=== PATIENT | female | born 1980 | race Caucasian/White ===

== ENCOUNTER 2022-06-11 17:23 | Emergency (ER) | payer BC ==
--- OUTSIDE RECORDS SUMMARY | 2022-06-11 17:34 | XMS REPORT | Continuity of Care Document ---
:1980 Author Organization [facility] t Address [address] [place] [address] [place] [id number] Care Team Providers Name Role Phone PCP, PATIENT DOES NOT HAVE A Primary Care Physician Unavailpaul Aly RN, Swetha Khalil Attending Clinician Unavailable UNKNOWN, ATTENDING Attending Clinician Unavailable Lab, Adc Fam Pob I Attending Clinician Unavailable Alex Mireles MD Attending Clinician ALEX MIRELES Attending Clinician Unavailable Doctor Unassigned, [place] Attending Clinician Unavailable KAT BHATTI Attending Clinician Unavailable MD TOMASA GARCIAS Attending Clinician Unavailable ANNALISA SCHULTZ Attending Clinician Unavailable MD ANNALISA SCHULTZ Attending Clinician Unavailable GELACIO MYERS Attending Clinician Unavailable ELI SOTO Attending Clinician Unavailable VARUN HOLMAN Attending Clinician Unavailable CLAIRE BONE Attending Clinician Unavailable Oscar Mccarthy Attending Clinician Fatoumata Goss DO Attending Clinician FATOUMATA GOSS Attending Clinician Unavailable Sherrell Christine Admitting Clinician Unavailable TOMASA GARCIAS Admitting Clinician Unavailable MD TOMASA GARCIAS Admitting Clinician Unavailable ANNALISA SCHULTZ Admitting Clinician Unavailable MD ANNALISA SCHULTZ Admitting Clinician Unavailable Oscar Mccarthy Admitting Clinician FATOUMATA GOSS Admitting Clinician Unavailable CLAIRE BONE Admitting Clinician Unavailable Payers Payer Name Policy Type Policy Number Effective Date Expiration Date S oursergio Problems Condition Condition Condition Status Onset Resolution Last Treating Co mments Source Name Details Category Date Date Treatment Clinician Date Acute Acute Disease Active Methodi gastritis gastritis 09-06 st without without 00:00: Hospita hemorrhage hemorrhage 00 l Sprain of Sprain of Problem Active 2019-10-05 Memoria ankle ankle 08-16 04:01:20 l grade III grade III 00:00: Herm ga (disorder) (disorder) 00 Active 08/17/2019 Problem 10/05/2019 [facility] 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 Added automatic ally from request for surgery [id number] Colitis Colitis Disease Active [facility] 06-22 st 00:00: Hospita 00 l Abdominal Abdominal Disease Active Met hodi pain pain 06-21 st 00:00: Hospita 00 l Enterocoli Enterocoli Disease Active M ethodi tis tis 06-16 st 00:00: Hospita 00 l Cervical Cervical Disease Active Overview: Me thodi radiculopa radiculopa 6-[address] thy thy 00:00: g of this Hospita 00 note l might be different from the original. Added automatic ally from request for surgery [id number] Cervical Cervical Disease Active Overview: Me thodi herniated herniated -12 Formattin s t disc disc 00:00: g of this Hospita 00 note l might be different from the original. 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 nasal hy of 04:01:20 l turbinates nasal Fuad n (disorder) turbinates (disorder) Active Problem 10/05/2019 [facility] Acute Acute Problem 2019-09-16 Memor ia frontal frontal 04:01:52 l sinusitis, sinusitis, [place] unspecifie unspecifie d d 09/16/2019 [facility] No known No known Disease Unive rs active active ity of problems problems [facility] Pneumonia Pneumonia Problem Resolve 2019-10-05 2019-10-05 Memoria (disorder) (disorder) d 02-16 04:01:20 04:01:20 l Resolved 00:00: Gui 02/16/2010 00 Problem 10/05/2019 [facility] Allergies, Adverse Reactions, Alerts Allergy Allergy Status Severity Reaction(s) Onset Inactive Treating Comm ents Source Name Type Date Date Clinician midazola DA Active SV 2019- [facility] m 2-08 [place] 00:[facility]: d [facility] cefazoli DA Active SV 2019- [facility] n 2-08 [place] 00:00: d 00 [facility] midazola DA Active SV HIVES, SOB 2019- [facility] m 2-08 [place] 00:00: d 00 [facility] Center cefazoli DA Active SV HIVES, SOB 2019- [facility] n 2-08 [place] 00:00: d 00 [facility] Center Cefazoli Propensi Active Shortness Of 2017-0 Methodi n ty to Breath -09 st adverse 00:00: Hospita reaction 00 l s to drug Midazola Propensi Active Shortness Of 2017-0 Methodi m ty to Breath 1-09 st adverse 00:00: Hospita reaction 00 l s to drug Cefazoli Propensi Active Hives Univer s n Sodium ty to 08-07 ity of adverse 00:00: [place] reaction 00 [facility] CEFAZOLI DRUG Active Anaphylaxis Uni vers N SODIUM INGREDI 08-07 ity of 00:00: [place] 00 [facility] MIDAZOLA DRUG Active Anaphylaxis Uni vers M HCL INGREDI 08-07 ity of 00:00: [address] Midazola Propensi Active Hives Univer s m Hcl ty to 08-07 ity of adverse 00:00: [place] reaction [address] [place] [address] Tape Tape Active Memoria desi Messer Versed Versed Active Anaphylaxis Memor ia (disorder) desi Messer Ancef Ancef Active Anaphylaxis Memor ia (disorder) desi Messer Family History Family Member Diagnosis Comments Start Date Stop Date Source Natural father Hypertension [facility] Natural mother Hypertension [facility] Social History Social Habit Start Date Stop Date Quantity Comments Source Exposure to Yes [facility] SARS-CoV-2 (event) [facility] Gender identity [facility] Sexual orientation [facility] History of Social 2022-05-21 2022-05-[address] function 00:00:00 00:00:00 Hospital Alcohol intake 2020-10-08 2020-10-08 Current drinker [facility] dist 00:00:00 00:00:00 of alcohol Hospital (finding) Cigarette 2019-01-18 2019-01-18 [facility] pack-[facility] 00:00:00 00:00:00 Hospital Tobacco use and 2019-01-18 2019-01-18 Smokeless [facility] exposure 00:00:00 00:00:00 tobacco non-user Hospital Cigarettes smoked 2019-01-18 2019-01-[address] current (pack per 00:00:00 00:00:00 Hospita l day) - Reported Alcohol Comment 2017-08-03 2017-08-03 couple times per Met hodist 00:00:00 00:00:00 month Hospital History of tobacco 2007-08-06 Current smoker [facility] use 00:00:00 [facility] Sex Assigned At [birth year] [facility] 00:00:00 00:00:00 Hospital Smoking Status Start Date Stop Date Source Ex-smoker 2019-01-18 00:00:00 2019-01-18 00:00:00 [facility] Social History [facility] Medications Ordered Filled Start Stop Current Ordering Indication Dosage Frequency Signature Comments Components Source Medication Medication Date Date Medication? Clinician (SIG) Name Name etonogestre Yes 1{dose} Q28D Insert 1 Methodi l/ethinyl 8-[address] estradiol 16:28: the vagina Ho spita (NUVARING 19 every 28 l VAGL) days. pantoprazol Yes 40mg QD Take 40 mg Methodi e 8-[address] (PROTONIX) 16:28: daily. Hospi ta 40 MG EC 19 l tablet montelukast Yes 10mg QD Take 10 mg Methodi (SINGULAIR) 8-[address] 10 mg 16:28: daily. Hospita tablet 19 l cetirizine Yes 1{tbl} QD Take 1 Met hodi HCl/pseudoe 8-[address] phedrine 16:28: mouth Hospita (ZYRTEC-D 19 daily. l ORAL) hyoscyamine Yes .125mg [id number] Take 0.125 Methodi (LEVSIN) 8-[id number] 0.125 mg SL 16:28: 3D mouth 3 Hos christine tablet 19 (three) l times a day as needed. Tylenol No Notes: Max Marcus tenisha 8-17 4gm l 18:01: acetaminop Gui 00 hen in 24 hours Tylenol No Notes: Max Marcus tenisha 8-17 4gm l 18:01: acetaminop Gui 00 hen in 24 hours Tylenol No Notes: Max Marcus tenisha 8-17 4gm l 18:01: acetaminop [place] 00 hen in 24 hours Tylenol No Notes: Max Marcus tenisha 8-17 4gm l 18:01: acetaminop [place] 00 hen in 24 hours Ofirmev No Notes: Max Marcus tenisha 8-17 4gm l 18:00: acetaminop [place] 00 hen in 24 hours Ofirmev No Notes: Max Marcus tenisha 8-17 4gm l 18:00: acetaminop Gui 00 hen in 24 hours Ofirmev No Notes: Max Marcus tenisha 8-17 4gm l 18:00: acetaminop Gui 00 hen in 24 hours Ofirmev No Notes: Max Marcus tenisha 8-17 4gm l 18:00: acetaminop Gui 00 hen in 24 hours Promethazin No 12.5 mg = M emoria e 8-17 0.5 mL, l 17:16: Injection, Gui 00 IM, Once PRN for vomiting, first dose 10/03/19 12:16:00 CDT Labetalol 2020-0 No 5 mg = 1 Marcus tenisha 8-17 mL, l 17:16: Injection, IV Push, As Indicated PRN for hypertensi on, first dose 10/03/19 12:16:00 CDT, SBP Hold Parameter: less than 110 mmHg, HR Hold Parameter: less than 60 bpm Diphenhydra 2020-0 No 25 mg = Mem oria mine 8-17 0.5 mL, l 17:16: Injection, IV Push, Once PRN for itching, first dose 10/03/19 12:16:00 CDT Misc 2020-0 No 500 mL, Memoria Medication 8-17 Soln-IV, l 17:16: IV, Once, first dose 10/03/19 12:16:00 CDT, stop date 10/03/19 12:16:00 CDT LR 1,000 mL 2020-0 No 1,000 mL, M emoria 8-17 IV, 75 l 17:16: mL/hr, start date 10/03/19 12:16:00 CDT, 1.43, m2 Saline Lock 2020-0 No 10 mL, Marcus tenisha Flush 8-17 Soln, IV l 17:16: Push, As Indicated PRN for flush, first dose 10/03/19 12:16:00 CDT Robinul 2020-0 No 0.2 mg = 1 Marcus tenisha 8-17 mL, l 17:16: Injection, IV Push, Once PRN for bradycardi a, first dose 10/03/19 12:16:00 CDT Dilaudid 2020-0 No 0.5 mg = Memor ia 8-17 0.5 mL, l 17:16: Injection, IV Push, q10min PRN for pain severe (7-10), first dose 10/03/19 12:16:00 CDT Demerol HCl 2020-0 No 12.5 mg = M emoria 8-17 0.5 mL, l 17:16: Injection, IV Push, Once PRN for shivers, first dose 10/03/19 12:16:00 CDT Albuterol 2020-0 No 2.5 mg = 3 Me moria 0.83 MG/ML 8-17 mL, Soln, l Inhalant 17:16: NEB, Once Herm ga Solution 00 PRN for wheezing, first dose 10/03/19 12:16:00 CDT Levalbutero 2020-0 No 0.63 mg = M emoria l 0.21 8-17 3 mL, l MG/ML 17:16: Soln, NEB, Fuad n Inhalant 00 Once PRN Solution for [Xopenex] wheezing, first dose 10/03/19 12:16:00 CDT Ondansetron 2020-0 No 4 mg = 2 Me moria 8-17 mL, l 17:16: Injection, [place] IV Push, q15min PRN for nausea, order duration: 2 doses, first dose 10/03/19 12:16:00 CDT, stop date Limited # of times Promethazin 2020-0 No 12.5 mg = M emoria e 8-17 0.5 mL, l 17:16: Injection, Gui 00 IM, Once PRN for vomiting, first dose 10/03/19 12:16:00 CDT Labetalol 2020-0 No 5 mg = 1 Marcus tenisha 8-17 mL, l 17:16: Injection, [place] IV Push, As Indicated PRN for hypertensi on, first dose 10/03/19 12:16:00 CDT, SBP Hold Parameter: less than 110 mmHg, HR Hold Parameter: less than 60 bpm LR 1,000 mL 2020-0 No 1,000 mL, M emoria 8-17 IV, 75 l 17:16: mL/hr, Gui 00 start date 10/03/19 12:16:00 CDT, 1.43, m2 Saline Lock 2020-0 No 10 mL, Marcus tenisha Flush 8-17 Soln, IV l 17:16: Push, As [place] Indicated PRN for flush, first dose 10/03/19 12:16:00 CDT Robinul 2020-0 No 0.2 mg = 1 Marcus tenisha 8-17 mL, l 17:16: Injection, [place] IV Push, Once PRN for bradycardi a, first dose 10/03/19 12:16:00 CDT Dilaudid 2020-0 No 0.5 mg = Memor ia 8-17 0.5 mL, l 17:16: Injection, Gui 00 IV Push, q10min PRN for pain severe (7-10), first dose 10/03/19 12:16:00 CDT Demerol HCl 2020-0 No 12.5 mg = M emoria 8-17 0.5 mL, l 17:16: Injection, [place] 00 IV Push, Once PRN for shivers, first dose 10/03/19 12:16:00 CDT Albuterol 2020-0 No 2.5 mg = 3 Me moria 0.83 MG/ML 8-17 mL, Soln, l Inhalant 17:16: NEB, Once Herm ga Solution 00 PRN for wheezing, first dose 10/03/19 12:16:00 CDT Levalbutero 2020-0 No 0.63 mg = M emoria l 0.21 8-17 3 mL, l MG/ML 17:16: Soln, NEB, Fuad n Inhalant 00 Once PRN Solution for [Xopenex] wheezing, first dose 10/03/19 12:16:00 CDT Ondansetron 2020-0 No 4 mg = 2 Me moria 8-17 mL, l 17:16: Injection, Gui 00 IV Push, q15min PRN for nausea, order duration: 2 doses, first dose 10/03/19 12:16:00 CDT, stop date Limited # of times Promethazin 2020-0 No 12.5 mg = M emoria e 8-17 0.5 mL, l 17:16: Injection, Gui 00 IM, Once PRN for vomiting, first dose 10/03/19 12:16:00 CDT Labetalol 2020-0 No 5 mg = 1 Marcus tenisha 8-17 mL, l 17:16: Injection, [place] 00 IV Push, As Indicated PRN for hypertensi on, first dose 10/03/19 12:16:00 CDT, SBP Hold Parameter: less than 110 mmHg, HR Hold Parameter: less than 60 bpm Diphenhydra 2020-0 No 25 mg = Mem oria mine 8-17 0.5 mL, l 17:16: Injection, Gui 00 IV Push, Once PRN for itching, first dose 10/03/19 12:16:00 CDT Diphenhydra 2020-0 No 25 mg = Mem oria mine 8-17 0.5 mL, l 17:16: Injection, IV Push, Once PRN for itching, first dose 10/03/19 12:16:00 CDT Misc 2020-0 No 500 mL, Memoria Medication 8-17 Soln-IV, l 17:16: IV, Once, first dose 10/03/19 12:16:00 CDT, stop date 10/03/19 12:16:00 CDT Misc 2020-0 No 500 mL, Memoria Medication 8-17 Soln-IV, l 17:16: IV, Once, first dose 10/03/19 12:16:00 CDT, stop date 10/03/19 12:16:00 CDT LR 1,000 mL 2020-0 No 1,000 mL, M emoria 8-17 IV, 75 l 17:16: mL/hr, start date 10/03/19 12:16:00 CDT, 1.43, m2 Saline Lock 2020-0 No 10 mL, Marcus tenisha Flush 8-17 Soln, IV l 17:16: Push, As Indicated PRN for flush, first dose 10/03/19 12:16:00 CDT Robinul 2020-0 No 0.2 mg = 1 Marcus tenisha 8-17 mL, l 17:16: Injection, IV Push, Once PRN for bradycardi a, first dose 10/03/19 12:16:00 CDT Dilaudid 2020-0 No 0.5 mg = Memor ia 8-17 0.5 mL, l 17:16: Injection, IV Push, q10min PRN for pain severe (7-10), first dose 10/03/19 12:16:00 CDT Demerol HCl 2020-0 No 12.5 mg = M emoria 8-17 0.5 mL, l 17:16: Injection, IV Push, Once PRN for shivers, first dose 10/03/19 12:16:00 CDT Albuterol 2020-0 No 2.5 mg = 3 Me moria 0.83 MG/ML 8-17 mL, Soln, l Inhalant 17:16: NEB, Once Herm ga Solution 00 PRN for wheezing, first dose 10/03/19 12:16:00 CDT Levalbutero 2020-0 No 0.63 mg = M emoria l 0.21 8-17 3 mL, l MG/ML 17:16: Soln, NEB, Fuad n Inhalant 00 Once PRN Solution for [Xopenex] wheezing, first dose 10/03/19 12:16:00 CDT Ondansetron 2020-0 No 4 mg = 2 Me moria 8-17 mL, l 17:16: Injection, [place] IV Push, q15min PRN for nausea, order duration: 2 doses, first dose 10/03/19 12:16:00 CDT, stop date Limited # of times Promethazin 2020-0 No 12.5 mg = [place] emoria e 8-17 0.5 mL, l 17:16: Injection, Gui 00 IM, Once PRN for vomiting, first dose 10/03/19 12:16:00 CDT Labetalol 2020-0 No 5 mg = 1 Marcus tenisha 8-17 mL, l 17:16: Injection, Gui IV Push, As Indicated PRN for hypertensi on, first dose 10/03/19 12:16:00 CDT, SBP Hold Parameter: less than 110 mmHg, HR Hold Parameter: less than 60 bpm Diphenhydra 2020-0 No 25 mg = Mem oria mine 8-17 0.5 mL, l 17:16: Injection, Gui 00 IV Push, Once PRN for itching, first dose 10/03/19 12:16:00 CDT Misc 2020-0 No 500 mL, Memoria Medication 8-17 Soln-IV, l 17:16: IV, Once, Gui first dose 10/03/19 12:16:00 CDT, stop date 10/03/19 12:16:00 CDT LR 1,000 mL 2020-0 No 1,000 mL, M emoria 8-17 IV, 75 l 17:16: mL/hr, Gui start date 10/03/19 12:16:00 CDT, 1.43, m2 Sal[place] 2020-0 No 10 mL, Marcus tenisha Flush 8-17 Soln, IV l 17:16: Push, As Gui 00 Indicated PRN for flush, first dose 10/03/19 12:16:00 CDT Robinul 2020-0 No 0.2 mg = 1 Marcus tenisha 8-17 mL, l 17:16: Injection, Gui 00 IV Push, Once PRN for bradycardi a, first dose 10/03/19 12:16:00 CDT Dilaudid 2020-0 No 0.5 mg = Memor ia 8-17 0.5 mL, l 17:16: Injection, Gui 00 IV Push, q10min PRN for pain severe (7-10), first dose 10/03/19 12:16:00 CDT Demerol HCl 2020-0 No 12.5 mg = M emoria 8-17 0.5 mL, l 17:16: Injection, Gui 00 IV Push, Once PRN for shivers, first dose 10/03/19 12:16:00 CDT Albuterol 2020-0 No 2.5 mg = 3 Me moria 0.83 MG/ML 8-17 mL, Soln, l Inhalant 17:16: NEB, Once Herm ga Solution 00 PRN for wheezing, first dose 10/03/19 12:16:00 CDT Levalbutero 2020-0 No 0.63 mg = M emoria l 0.21 8-17 3 mL, l MG/ML 17:16: Soln, NEB, Fuad n Inhalant 00 Once PRN Solution for [Xopenex] wheezing, first dose 10/03/19 12:16:00 CDT Ondansetron 2020-0 No 4 mg = 2 Me moria 8-17 mL, l 17:16: Injection, [place] 00 IV Push, q15min PRN for nausea, order duration: 2 doses, first dose 10/03/19 12:16:00 CDT, stop date Limited # of times sugammadex 2020-0 No 100 mg = 1 M emoria 8-17 mL, l 16:53: Injection, [place] 00 IV, Once, first dose 10/03/19 11:53:00 CDT, stop date 10/03/19 11:53:00 CDT sugammadex 2020-0 No 100 mg = 1 M emoria 8-17 mL, l 16:53: Injection, Gui 00 IV, Once, first dose 10/03/19 11:53:00 CDT, stop date 10/03/19 11:53:00 CDT sugammadex 2020-0 No 100 mg = 1 M aliyaria 8-17 mL, l 16:53: Injection, Gui 00 IV, Once, first dose 10/03/19 11:53:00 CDT, stop date 10/03/19 11:53:00 CDT sugammadex 2020-0 No 100 mg = 1 M aliyaria 8-17 mL, l 16:53: Injection, Gui 00 IV, Once, first dose 10/03/19 11:53:00 CDT, stop date 10/03/19 11:53:00 CDT fentaNYL 2020-0 No 25 mcg = Memor ia 8-17 0.5 mL, l 16:34: Injection, [place] 00 IV, Once, first dose 10/03/19 11:34:00 CDT, stop date 10/03/19 11:34:00 CDT fentaNYL 2020-0 No 25 mcg = Memor ia 8-17 0.5 mL, l 16:34: Injection, Gui 00 IV, Once, first dose 10/03/19 11:34:00 CDT, stop date 10/03/19 11:34:00 CDT fentaNYL 2020-0 No 25 mcg = Memor ia 8-17 0.5 mL, l 16:34: Injection, Gui 00 IV, Once, first dose 10/03/19 11:34:00 CDT, stop date 10/03/19 11:34:00 CDT fentaNYL 2020-0 No 25 mcg = Memor ia 8-17 0.5 mL, l 16:34: Injection, Gui 00 IV, Once, first dose 10/03/19 11:34:00 CDT, stop date 10/03/19 11:34:00 CDT fentaNYL 2020-0 No 25 mcg = Memor ia 8-17 0.5 mL, l 16:22: Injection, Gui 00 IV, Once, first dose 10/03/19 11:22:00 CDT, stop date 10/03/19 11:22:00 CDT fentaNYL 2020-0 No 25 mcg = Memor ia 8-17 0.5 mL, l 16:22: Injection, Gui 00 IV, Once, first dose 10/03/19 11:22:00 CDT, stop date 10/03/19 11:22:00 CDT fentaNYL 2020-0 No 25 mcg = Memor ia 8-17 0.5 mL, l 16:22: Injection, [place] 00 IV, Once, first dose 10/03/19 11:22:00 CDT, stop date 10/03/19 11:22:00 CDT fentaNYL 2020-0 No 25 mcg = Memor ia 8-17 0.5 mL, l 16:22: Injection, [place] 00 IV, Once, first dose 10/03/19 11:22:00 CDT, stop date 10/03/19 11:22:00 CDT ondansetron 2020-0 No 4 mg = 2 Me moria 8-17 mL, l 16:14: Injection, Gui 00 IV, Once, first dose 10/03/19 11:14:00 CDT, stop date 10/03/19 11:14:00 CDT ondansetron 2020-0 No 4 mg = 2 Me moria 8-17 mL, l 16:14: Injection, Gui 00 IV, Once, first dose 10/03/19 11:14:00 CDT, stop date 10/03/19 11:14:00 CDT ondansetron 2020-0 No 4 mg = 2 Me moria 8-17 mL, l 16:14: Injection, Gui 00 IV, Once, first dose 10/03/19 11:14:00 CDT, stop date 10/03/19 11:14:00 CDT ondansetron 2020-0 No 4 mg = 2 Me moria 8-17 mL, l 16:14: Injection, [place] 00 IV, Once, first dose 10/03/19 11:14:00 CDT, stop date 10/03/19 11:14:00 CDT fentaNYL 2020-0 No 25 mcg = Memor ia 8-17 0.5 mL, l 16:07: Injection, [place] 00 IV, Once, first dose 10/03/19 11:07:00 CDT, stop date 10/03/19 11:07:00 CDT fentaNYL 2020-0 No 25 mcg = Memor ia 8-17 0.5 mL, l 16:07: Injection, Gui 00 IV, Once, first dose 10/03/19 11:07:00 CDT, stop date 10/03/19 11:07:00 CDT fentaNYL 2020-0 No 25 mcg = Memor ia 8-17 0.5 mL, l 16:07: Injection, Gui 00 IV, Once, first dose 10/03/19 11:07:00 CDT, stop date 10/03/19 11:07:00 CDT fentaNYL 2020-0 No 25 mcg = Memor ia 8-17 0.5 mL, l 16:07: Injection, Gui 00 IV, Once, first dose 10/03/19 11:07:00 CDT, stop date 10/03/19 11:07:00 CDT fentaNYL 2020-0 No 25 mcg = Memor ia 8-17 0.5 mL, l 16:00: Injection, [place] 00 IV, Once, first dose 10/03/19 11:00:00 CDT, stop date 10/03/19 11:00:00 CDT fentaNYL 2020-0 No 25 mcg = Memor ia 8-17 0.5 mL, l 16:00: Injection, [place] 00 IV, Once, first dose 10/03/19 11:00:00 CDT, stop date 10/03/19 11:00:00 CDT fentaNYL 2020-0 No 25 mcg = Memor ia 8-17 0.5 mL, l 16:00: Injection, Gui 00 IV, Once, first dose 10/03/19 11:00:00 CDT, stop date 10/03/19 11:00:00 CDT fentaNYL 2020-0 No 25 mcg = Memor ia 8-17 0.5 mL, l 16:00: Injection, [place] 00 IV, Once, first dose 10/03/19 11:00:00 CDT, stop date 10/03/19 11:00:00 CDT Misc 2020-0 No 1,000 mL, Memoria Medication 8-17 Soln-IV, l 15:56: IV, Once, Gui 00 first dose 10/03/19 10:56:00 CDT, stop date 10/03/19 10:56:00 CDT Misc 2020-0 No 1,000 mL, Memoria Medication 8- Soln-IV, l 15:56: IV, Once, first dose 10/03/19 10:56:00 CDT, stop date 10/03/19 10:56:00 CDT Misc 2020-0 No 1,000 mL, Memoria Medication - Soln-IV, l 15:56: IV, Once, first dose 10/03/19 10:56:00 CDT, stop date 10/03/19 10:56:00 CDT Misc 2020-0 No 1,000 mL, Memoria Medication - Soln-IV, l 15:56: IV, Once, first dose 10/03/19 10:56:00 CDT, stop date 10/03/19 10:56:00 CDT dexamethaso 2020-0 No 8 mg = 2 Me moria ne 8-17 mL, l 15:07: Injection, IV, Once, first dose 10/03/19 10:07:00 CDT, stop date 10/03/19 10:07:00 CDT rocuronium 2020-0 No 25 mg = Marcus tenisha 8-17 2.5 mL, l 15:07: Injection, IV, Once, first dose 10/03/19 10:07:00 CDT, stop date 10/03/19 10:07:00 CDT dexamethaso 2020-0 No 8 mg = 2 Me moria ne 8-17 mL, l 15:07: Injection, IV, Once, first dose 10/03/19 10:07:00 CDT, stop date 10/03/19 10:07:00 CDT rocuronium 2020-0 No 25 mg = Marcus tenisha 8-17 2.5 mL, l 15:07: Injection, IV, Once, first dose 10/03/19 10:07:00 CDT, stop date 10/03/19 10:07:00 CDT dexamethaso 2020-0 No 8 mg = 2 Me moria ne 8-17 mL, l 15:07: Injection, IV, Once, first dose 10/03/19 10:07:00 CDT, stop date 10/03/19 10:07:00 CDT rocuronium 2020-0 No 25 mg = Marcus tenisha 8-17 2.5 mL, l 15:07: Injection, 00 IV, Once, first dose 10/03/19 10:07:00 CDT, stop date 10/03/19 10:07:00 CDT dexamethaso 2020-0 No 8 mg = 2 Me moria ne 8-17 mL, l 15:07: Injection, IV, Once, first dose 10/03/19 10:07:00 CDT, stop date 10/03/19 10:07:00 CDT rocuronium 2020-0 No 25 mg = Marcus tenisha 8-17 2.5 mL, l 15:07: Injection, IV, Once, first dose 10/03/19 10:07:00 CDT, stop date 10/03/19 10:07:00 CDT succinylcho 2020-0 No 80 mg = 4 M emoria line 8-17 mL, l 14:55: Injection, IV, Once, first dose 10/03/19 9:55:00 CDT, stop date 10/03/19 9:55:00 CDT lidocaine 2020-0 No 4 mL, Memoria topical 8-17 Soln, l 14:55: Kit-Combo, Once, first dose 10/03/19 9:55:00 CDT, stop date 10/03/19 9:55:00 CDT rocuronium 2020-0 No 5 mg = 0.5 M emoria 8-17 mL, l 14:55: Injection, IV, Once, first dose 10/03/19 9:55:00 CDT, stop date 10/03/19 9:55:00 CDT lidocaine 2020-0 No 80 mg = 4 Mem oria 8-17 mL, l 14:55: Injection, IV, Once, first dose 10/03/19 9:55:00 CDT, stop date 10/03/19 9:55:00 CDT propofol 2020-0 No 160 mg = Memor ia 8-17 16 mL, l 14:55: Emulsion, Ugi 00 IV, Once, first dose 10/03/19 9:55:00 CDT, stop date 10/03/19 9:55:00 CDT succinylcho 2020-0 No 80 mg = 4 M emoria line 8-17 mL, l 14:55: Injection, 00 IV, Once, first dose 10/03/19 9:55:00 CDT, stop date 10/03/19 9:55:00 CDT lidocaine 2020-0 No 4 mL, Memoria topical 8-17 Soln, l 14:55: Kit-Combo, Gui 00 Once, first dose 10/03/19 9:55:00 CDT, stop date 10/03/19 9:55:00 CDT rocuronium 2020-0 No 5 mg = 0.5 M emoria 8-17 mL, l 14:55: Injection, IV, Once, first dose 10/03/19 9:55:00 CDT, stop date 10/03/19 9:55:00 CDT lidocaine 2020-0 No 80 mg = 4 Mem oria 8-17 mL, l 14:55: Injection, 00 IV, Once, first dose 10/03/19 9:55:00 CDT, stop date 10/03/19 9:55:00 CDT propofol 2020-0 No 160 mg = Memor ia 8-17 16 mL, l 14:55: Emulsion, IV, Once, first dose 10/03/19 9:55:00 CDT, stop date 10/03/19 9:55:00 CDT succinylcho 2020-0 No 80 mg = 4 M emoria line 8-17 mL, l 14:55: Injection, 00 IV, Once, first dose 10/03/19 9:55:00 CDT, stop date 10/03/19 9:55:00 CDT lidocaine 2020-0 No 4 mL, Memoria topical 8-17 Soln, l 14:55: Kit-Combo, Gui 00 Once, first dose 10/03/19 9:55:00 CDT, stop date 10/03/19 9:55:00 CDT rocuronium 2020-0 No 5 mg = 0.5 M emoria 8-17 mL, l 14:55: Injection, [place] 00 IV, Once, first dose 10/03/19 9:55:00 CDT, stop date 10/03/19 9:55:00 CDT lidocaine 2020-0 No 80 mg = 4 Mem oria 8-17 mL, l 14:55: Injection, IV, Once, first dose 10/03/19 9:55:00 CDT, stop date 10/03/19 9:55:00 CDT propofol 2020-0 No 160 mg = Memor ia 8-17 16 mL, l 14:55: Emulsion, 00 IV, Once, first dose 10/03/19 9:55:00 CDT, stop date 10/03/19 9:55:00 CDT succinylcho 2020-0 No 80 mg = 4 M emoria line 8-17 mL, l 14:55: Injection, IV, Once, first dose 10/03/19 9:55:00 CDT, stop date 10/03/19 9:55:00 CDT lidocaine 2020-0 No 4 mL, Memoria topical 8-17 Soln, l 14:55: Kit-Combo, Once, first dose 10/03/19 9:55:00 CDT, stop date 10/03/19 9:55:00 CDT rocuronium 2020-0 No 5 mg = 0.5 M emoria 8-17 mL, l 14:55: Injection, IV, Once, first dose 10/03/19 9:55:00 CDT, stop date 10/03/19 9:55:00 CDT lidocaine 2020-0 No 80 mg = 4 Mem oria 8-17 mL, l 14:55: Injection, IV, Once, first dose 10/03/19 9:55:00 CDT, stop date 10/03/19 9:55:00 CDT propofol 2020-0 No 160 mg = Memor ia 8-17 16 mL, l 14:55: Emulsion, 00 IV, Once, first dose 10/03/19 9:55:00 CDT, stop date 10/03/19 9:55:00 CDT ondansetron 2020-0 No 4 mg = 2 Me moria 8-17 mL, l 14:48: Injection, 00 IV, Once, first dose 10/03/19 9:48:00 CDT, stop date 10/03/19 9:48:00 CDT fentaNYL 2020-0 No 100 mcg = Marcus tenisha 8-17 2 mL, l 14:48: Injection, [place] 00 IV, Once, first dose 10/03/19 9:48:00 CDT, stop date 10/03/19 9:48:00 CDT ondansetron 2020-0 No 4 mg = 2 Me moria 8-17 mL, l 14:48: Injection, [place] 00 IV, Once, first dose 10/03/19 9:48:00 CDT, stop date 10/03/19 9:48:00 CDT fentaNYL 2020-0 No 100 mcg = Marcus tenisha 8-17 2 mL, l 14:48: Injection, [place] 00 IV, Once, first dose 10/03/19 9:48:00 CDT, stop date 10/03/19 9:48:00 CDT ondansetron 2020-0 No 4 mg = 2 Me moria 8-17 mL, l 14:48: Injection, Gu[place] 00 IV, Once, first dose 10/03/19 9:48:00 CDT, stop date 10/03/19 9:48:00 CDT fentaNYL 2020-0 No 100 mcg = Marcus tenisha 8-17 2 mL, l 14:48: Injection, [place] 00 IV, Once, first dose 10/03/19 9:48:00 CDT, stop date 10/03/19 9:48:00 CDT ondansetron 2020-0 No 4 mg = 2 Me moria 8-17 mL, l 14:48: Injection, [place] 00 IV, Once, first dose 10/03/19 9:48:00 CDT, stop date 10/03/19 9:48:00 CDT fentaNYL 2020-0 No 100 mcg = Marcus tenisha 8-17 2 mL, l 14:48: Injection, [place] 00 IV, Once, first dose 10/03/19 9:48:00 CDT, stop date 10/03/19 9:48:00 CDT Zithromax 2020-0 No 500 mg, IV Me moria IV 8-17 Piggyback, l 13:00: Once, [place] 00 infuse over 60 minutes, first dose 10/03/19 8:00:00 CDT, stop date 10/03/19 8:00:00 CDT, Prophylaxi s Zithromax 2020-0 No 500 mg, IV Me moria IV 8-17 Piggyback, l 13:00: Once, [place] 00 infuse over 60 minutes, first dose 10/03/19 8:00:00 CDT, stop date 10/03/19 8:00:00 CDT, Prophylaxi s Zithromax 2020-0 No 500 mg, IV Me moria IV 8-17 Piggyback, l 13:00: Once, [place] 00 infuse over 60 minutes, first dose 10/03/19 8:00:00 CDT, stop date 10/03/19 8:00:00 CDT, Prophylaxi s Zithromax 2020-0 No 500 mg, IV Me moria IV 8-17 Piggyback, l 13:00: Once, infuse over 60 minutes, first dose 10/03/19 8:00:00 CDT, stop date 10/03/19 8:00:00 CDT, Prophylaxi s LR 1,000 mL 2020-0 No 1,000 mL, M emoria 8-17 IV, 30 l 12:38: mL/hr, start date 10/03/19 7:38:00 CDT, 1.43, m2 Lidocaine 2020-0 Yes 0.2 mL, Memor ia 2% 0.2 mL 10-02 Injection, l IV Start 12:38: Subcutaneo [facility] [[facility]] 00 us, Once PRN for other (see comment), first dose 10/03/19 7:38:00 CDT LR 1,000 mL 2020-0 No 1,000 mL, M emoria 8-17 IV, 30 l 12:38: mL/hr, start date 10/03/19 7:38:00 CDT, 1.43, m2 Lidocaine 2020-0 Yes 0.2 mL, Memor ia 2% 0.2 mL 17 Injection, l IV Start 12:38: Subcutaneo [facility] [[facility] 00 us, Once PRN for other (see comment), first dose 10/03/19 7:38:00 CDT LR 1,000 mL 2020-0 No 1,000 mL, M emoria 8-17 IV, 30 l 12:38: mL/hr, [place] 00 start date 10/03/19 7:38:00 CDT, 1.43, m2 Lidocaine 2019-0 Yes 0.2 mL, Memor ia 2% 0.2 mL 8-17 Injection, l IV Start 12:38: Subcutaneo Her [facility] [[place]] 00 us, Once PRN for other (see comment), first dose 10/03/19 7:38:00 CDT LR 1,000 mL 2019- No 1,000 mL, M emoria 8-17 IV, 30 l 12:38: mL/hr, [place] start date 10/03/19 7:38:00 CDT, 1.43, m2 Lidocaine 2019-0 Yes 0.2 mL, Memor ia 2% 0.2 mL 8-17 Injection, l IV Start 12:38: Subcutaneo Her [facility] [[place]] 00 us, Once PRN for other (see comment), first dose 10/03/19 7:38:00 CDT Yes INSERT ONE Memor ia Ethinyl 8-12 RING l Estradiol 18:23: VAGINALLY Her ayoub 0.291386 00 AND LEAVE MG/HR / IN PLACE [place] FOR 3 l 0.005 CONSECUTIV MG/HR E WEEKS Vaginal THEN System REMOVE FOR [EluRyng] 1 WEEK. INSERT NEW RING 7 DAYS AFTER THE LAST WAS REMOV, Control Yes INSERT ONE Memor ia Ethinyl 8-12 RING l Estradiol 18:23: VAGINALLY Her ayoub 0.839523 00 AND LEAVE MG/HR / IN PLACE [place] FOR 3 l 0.005 CONSECUTIV MG/HR E WEEKS Vaginal THEN System REMOVE FOR [EluRyng] 1 WEEK. INSERT NEW RING 7 DAYS AFTER THE LAST WAS REMOV, Control Yes INSERT ONE Memor ia Ethinyl 8-12 RING l Estradiol 18:23: VAGINALLY Her ayoub 0.026307 00 AND LEAVE MG/HR / IN PLACE [place] FOR 3 l 0.005 CONSECUTIV MG/HR E WEEKS Vaginal THEN System REMOVE FOR [EluRyng] 1 WEEK. INSERT NEW RING 7 DAYS AFTER THE LAST WAS REMOV, Control Yes INSERT ONE Memor ia Ethinyl 8-12 RING l Estradiol 18:23: VAGINALLY Her ayoub 0.592621 00 AND LEAVE MG/HR / IN PLACE [place] FOR 3 l 0.005 CONSECUTIV MG/HR E WEEKS Vaginal THEN System REMOVE FOR [EluRyng] 1 WEEK. INSERT NEW RING 7 DAYS AFTER THE LAST WAS REMOV, Control acetaminoph 2019- No 650mg 650 mg, U nivers en 05-16 Oral, ity of (TYLENOL) 23:00: 21:57 ONCE, 1 [place] tablet 650 00 :00 dose, Tue Medi stewart mg 05/17/19 at Branch 1800, URSULA metoclopram 2019- No 10mg 10 mg, Uni vers nena HCl 05-16 Slow IV ity of (REGLAN) 23:00: 21:57 Push, [place] injection 00 :00 ONCE, 1 Medical 10 mg dose, [facility] Branch 05/17/19 at 1800, URSULA diphenhydrA 2019- No 25mg 25 mg, Uni vers MINE 05-16 Slow IV ity of (BENADRYL) 23:00: 21:57 Push, [place] injection 00 :00 ONCE, 1 Medical 25 mg dose, [facility] 05/17/19 at 1800, STAT levoFLOXaci 2019- No 500mg 500 mg, IV Univers n in D5W 05-16 Piggyback, ity of (LEVAQUIN) 23:00: 22:57 ONCE, 1 [place] 500 mg/100 00 :00 dose, Tue Medi stewart mL 05/17/19 at Branch Piggyback 1800, 100 500 mg mL
Reas on for Anti-Infec tive: Empiric Therapy for Suspected Infection< br>Empiric Therapy Site: Urine
D uration of therapy: 72 hours sulfamethox 2019- 2020- No 1{tbl} Take 1 U nivers azole-trime 05-16 tablet by it y thoprim 22:40: 00:00 mouth 2 [place] (BACTRIM 20 :00 (two) Medical DS) 800-160 times Branch mg per daily. tablet NaCl 0.9% 2019- No 1000mL at 999 Uni vers (NS) bolus 05-16 mL/hr, ity of infusion 22:15: 21:24 1,000 mL, [place] as 1,000 mL 00 :00 IV Medical Infusion, Branch ONCE, 1 dose, 05/17/19 at 1715, STAT methylPREDN 2020-0 Yes Take by Uni vers ISolone 3-31 mouth ity of (METHYLPRED 21:29: SEE-INSTRU [place] DP) 4 mg 00 CTIONS. Medical tablets follow Branch package directions methylPREDN 2020-0 Yes Take by Uni vers ISolone 3-31 mouth ity of (METHYLPRED 21:29: SEE-INSTRU [place] DP) 4 mg 00 CTIONS. Medical tablets follow Branch package directions methylPREDN 2020-0 Yes Take by Uni vers ISolone 3-31 mouth ity of (METHYLPRED 21:29: SEE-INSTRU [place] DP) 4 mg 00 CTIONS. Medical tablets follow Branch package directions methylPREDN 2020-0 Yes Take by Uni vers ISolone 3-31 mouth ity of (METHYLPRED 21:29: SEE-INSTRU [place] DP) 4 mg 00 CTIONS. Medical tablets follow Branch package directions methylPREDN 2020-0 Yes Take by Uni vers ISolone 3-31 mouth ity of (METHYLPRED 21:29: SEE-INSTRU [place] DP) 4 mg 00 CTIONS. Medical tablets follow Branch package directions montelukast 2019-0 Yes 10mg Take 10 mg Univers 10 mg 3-31 by mouth. ity of tablet 21:17: [address] ALBUTEROL 2019-0 Yes Inhale. [facility] rs INHALE 3-31 ity of 21:17: [address] loratadine/ 2019-0 Yes Take by Uni vers pseudoephed 3-31 mouth. ity of rine 21:17: [place] (CLARITIN-D 05 [facility] 12 HOUR Branch ORAL) NUVARING 2019-0 Yes Insert Univers VAGINAL 3-31 into ity of 21:17: vagina. [address] montelukast 2020-0 Yes 10mg Take 10 mg Univers 10 mg 3-31 by mouth. ity of tablet 21:17: [address] ALBUTEROL 2020-0 Yes Inhale. Unive rs INHALE 3-31 ity of 21:17: [address] loratadine/ 2019-0 Yes Take by Uni vers pseudoephed 3-31 mouth. ity of rine 21:17: [place] (CLARITIN-D 05 [facility] 12 HOUR Branch ORAL) NUVARING 2019-0 Yes Insert Univers VAGINAL 3-31 into ity of 21:17: vagina. [address] montelukast Yes 10mg Take 10 mg Univers 10 mg 3-31 by mouth. ity of tablet 21:17: [address] ALBUTEROL 2019-0 Yes Inhale. Unive rs INHALE 3-31 ity of 21:17: [address] loratadine/ 0 Yes Take by Uni vers pseudoephed 3-31 mouth. ity of rine 21:17: [place] (CLARITIN-D [address] [place] [address] HOUR Branch ORAL) NUVARING Yes Insert Univers VAGINAL 3-31 into ity of 21:17: vagina. [address] montelukast Yes 10mg Take 10 mg Univers 10 mg 3-31 by mouth. ity of tablet 21:17: [address] ALBUTEROL Yes Inhale. Unive rs INHALE 3-31 ity of 21:17: [address] loratadine/ Yes Take by Uni vers pseudoephed 3-31 mouth. ity of rine 21:17: [place] (CLARITIN-D [address] [place] [address] 12 HOUR Branch ORAL) NUVARING 0 Yes Insert Univers VAGINAL 3-31 into ity of 21:17: vagina. [address] montelukast Yes 10mg Take 10 mg Univers 10 mg 3-31 by mouth. ity of tablet 21:17: [address] ALBUTEROL Yes Inhale. Unive rs INHALE 3-31 ity of 21:17: [address] loratadine/ Yes Take by Uni vers pseudoephed 3-31 mouth. ity of rine 21:17: [place] (CLARITIN-D [address] [place] [address] 12 HOUR Branch ORAL) NUVARING 0 Yes Insert Univers VAGINAL 3-31 into ity of 21:17: vagina. [address] codeine-gua 2019-0 Yes [id number] 5mL Take 5 mL Univers ifenesin 3-31 by mouth ity of (CHERATUSSI 00:00: every 6 [place] N AC) 00 (six) Medical 10-100 mg/5 hours as Bran ch mL solution needed for Cough. codeine-gua 2019-0 Yes [id number] 5mL Take 5 mL Univers ifenesin 3-31 by mouth ity of (CHERATUSSI 00:00: every 6 [place] N AC) 00 (six) Medical 10-100 mg/5 hours as Bran ch mL solution needed for Cough. codeine-gua 2020-0 Yes [id number] 5mL Take 5 mL Univers ifenesin 3-31 by mouth ity of (CHERATUSSI 00:00: every 6 [place] N AC) 00 (six) Medical 10-100 mg/5 hours as Bran ch mL solution needed for Cough. codeine-gua 2020-0 Yes [id number] 5mL Take 5 mL Univers ifenesin 3-31 by mouth ity of (CHERATUSSI 00:00: every 6 [place] N AC) 00 (six) Medical 10-100 mg/5 hours as Bran ch mL solution needed for Cough. codeine-gua 2020-0 Yes [id number] 5mL Take 5 mL Univers ifenesin 3-31 by mouth ity of (CHERATUSSI 00:00: every 6 [place] N AC) 00 (six) Medical 10-100 mg/5 hours as Bran ch mL solution needed for Cough. sulfamethox 2020-0 2020- No [id number] 1{tbl} Take 1 Univers azole-trime 3-31 04-08 tablet by it y of thoprim 00:00: 04:59 mouth 2 [place] 800-160 mg 00 :00 (two) Medical per tablet times Branch daily for 7 days. sulfamethox 2020-0 2020- No [id number] 1{tbl} Take 1 Univers azole-trime 3-31 04-08 tablet by it y of thoprim 00:00: 04:59 mouth 2 [place] 800-160 mg 00 :00 (two) Medical per tablet times Branch daily for 7 days. 200 ACTUAT 2015-02 Yes 2 puffs, Mem oria Albuterol 2-20 INH, q4hr, l 0.09 21:41: PRN as [place] MG/ACTUAT 00 needed for Dry Powder shortness Inhaler of breath or wheezing, 0 Refill(s), asthma 200 ACTUAT 2015-02 Yes 2 puffs, Mem oria Albuterol 2-20 INH, q4hr, l 0.09 21:41: PRN as [place] MG/ACTUAT 00 needed for Dry Powder shortness Inhaler of breath or wheezing, 0 Refill(s), asthma 200 ACTUAT 2015-02 Yes 2 puffs, Mem oria Albuterol 2-20 INH, q4hr, l 0.09 21:41: PRN as [place] MG/ACTUAT 00 needed for Dry Powder shortness Inhaler of breath or wheezing, 0 Refill(s), asthma 200 ACTUAT 2015-02 Yes 2 puffs, Mem oria Albuterol 2-20 INH, q4hr, l 0.09 21:41: PRN as [place] MG/ACTUAT 00 needed for Dry Powder shortness Inhaler of breath or wheezing, 0 Refill(s), asthma celecoxib Yes [id number] 200mg Take 1 Cap Univers (CELEBREX) 9 by mouth ity o f 200 mg 00:00: daily. [place] capsule [facility] gabapentin 2009- Yes [id number] 300mg Take 1 Cap Univers (NEURONTIN) 10-23 by mouth 3 it y of 300 mg 00:00: (three) [place] capsule 00 times Medical daily. Branch celecoxib 2009- Yes [id number] 200mg Take 1 Cap Univers (CELEBREX) 10-23 by mouth ity o f 200 mg 00:00: daily. [place] capsule [facility] gabapentin 2009- Yes [id number] 300mg Take 1 Cap Univers (NEURONTIN) 10-23 by mouth 3 it y of 300 mg 00:00: (three) [place] capsule 00 times Medical daily. [place] celecoxib 2009- Yes [id number] 200mg Take 1 Cap Univers (CELEBREX) 10-23 by mouth ity o f 200 mg 00:00: daily. [place] capsule [facility] gabapentin 2009- Yes [id number] 300mg Take 1 Cap Univers (NEURONTIN) 10-23 by mouth 3 it y of 300 mg 00:00: (three) [place] capsule 00 times Medical daily. Branch celecoxib 2009- Yes [id number] 200mg Take 1 Cap Univers (CELEBREX) 10-23 by mouth ity o f 200 mg 00:00: daily. [place] capsule 00 [facility] gabapentin 2009- Yes [id number] 300mg Take 1 Cap Univers (NEURONTIN) 10-23 by mouth 3 it y of 300 mg 00:00: (three) [place] capsule 00 times Medical daily. Branch celecoxib 2009- Yes [id number] 200mg Take 1 Cap Univers (CELEBREX) 10-23 by mouth ity o f 200 mg 00:00: daily. [place] capsule 00 Medical Branch gabapentin 2010-0 Yes [id number] 300mg Take 1 Cap Univers (NEURONTIN) 10-23 by mouth 3 it y of 300 mg 00:00: (three) [place] capsule 00 times Medical daily. Branch propoxyphen 2009-0 Yes 1{tbl} Take 1 Tab Univers e - 8-06 by mouth ity of acetaminoph 15:07: every 6 [place] en 13 (six) Medical (DARVOCET-N hours as Bran ch 100) needed 100-650 mg tablet propoxyphen 2010-0 Yes 1{tbl} Take 1 Tab Univers e - 8-06 by mouth ity of acetaminoph 15:07: every 6 [place] en 13 (six) Medical (DARVOCET-N hours as Bran ch 100) needed 100-650 mg tablet propoxyphen 2009-0 Yes 1{tbl} Take 1 Tab Univers e - 8-06 by mouth ity of acetaminoph 15:07: every 6 [place] en 13 (six) Medical (DARVOCET-N hours as Bran ch 100) needed 100-650 mg tablet propoxyphen 2010-0 Yes 1{tbl} Take 1 Tab Univers e - 8-06 by mouth ity of acetaminoph 15:07: every 6 [place] en 13 (six) Medical (DARVOCET-N hours as Bran ch 100) needed 100-650 mg tablet propoxyphen 2010-0 Yes 1{tbl} Take 1 Tab Univers e - 8-06 by mouth ity of acetaminoph 15:07: every 6 [place] en 13 (six) Medical (DARVOCET-N hours as Bran ch 100) needed 100-650 mg tablet Vital Signs Vital Name Observation Time Observation Value Comments Source Systolic blood 2019-05-17 23:00:00 111 mm[Hg] Univer sity of pressure [place] [facility] Diastolic blood 2019-05-17 23:00:00 74 mm[Hg] Unive rsity of pressure [place] [facility] Heart rate 2019-05-17 23:00:00 99 /min Universi ty [facility] Respiratory rate 2019-05-17 23:00:00 19 /min [facility] [place] [facility] Oxygen saturation in 2019-05-17 23:00:00 98 /min University of Arterial blood by [facility] Pulse oximetry Branch Body temperature 2019-05-17 20:37:00 37.06 Mirella [facility] Body weight 2019-05-17 20:37:00 46.72 kg Universi ty [facility] BMI 2019-05-17 20:37:00 20.80 kg/m2 Universi [facility] Systolic blood 2019-05-17 23:00:00 111 mm[Hg] Univer sity of pressure [place] [facility] Diastolic blood 2019-05-17 23:00:00 74 mm[Hg] Unive rsity of pressure [place] [facility] Heart rate 2019-05-17 23:00:00 99 /min Universi [facility] Respiratory rate 2019-05-17 23:00:00 19 /min [facility] Oxygen saturation in 2019-05-17 23:00:00 98 /min University of Arterial blood by [facility] Pulse oximetry Branch Body temperature 2019-05-17 20:37:00 37.06 Mirella [facility] Body weight 2019-05-17 20:37:00 46.72 kg Universi [facility] BMI 2019-05-17 20:37:00 20.80 kg/m2 [facility] Respitory Rate 2019-10-03 18:54:00 Memori al Gui Systolic (mm Hg) 2019-10-03 18:30:00 Marcus rial [place] Diastolic (mm Hg) 2019-10-03 18:30:00 Mem orial [place] Heart Rate 2019-10-03 18:30:00 [facility] [place] Respitory Rate 2019-10-03 18:30:00 Memori al [place] Systolic (mm Hg) 2019-10-03 18:20:00 Marcus rial [place] Diastolic (mm Hg) 2019-10-03 18:20:00 Mem orial [place] Heart Rate 2019-10-03 18:20:00 [facility] [place] Respitory Rate 2019-10-03 18:20:00 Memori al Gui Heart Rate 2019-10-03 18:10:00 Memorial Gui Systolic (mm Hg) 2019-10-03 18:10:00 Marcus rial [place] Diastolic (mm Hg) 2019-10-03 18:10:00 Mem orial Gui Temperature Oral (F) 2019-10-03 17:07:00 36.9 Mirella [facility] [place] Temperature Oral (F) 2019-10-03 12:52:00 36.6 Mirella [facility] Height 2019-10-03 12:52:00 150 cm [facility] [place] Height 2019-09-28 16:07:00 150 cm [facility] Procedures Procedure Date / Time Performing Clinician Source Performed ASSIGNMENT OF BENEFITS 2020-09-27 22:31:52 Doctor Unassigned, No [facility] NASAL/SINUS ENDOSCOPY 2019-10-03 15:15:00 Yuri Caraballo W/ETHMOIDECTOMY W/SPHENOIDOTOMY W/REMOVAL OF TISSUE [id number] (Bilateral)<sup>1</s up> SUBMUCUS RESECTION 2019-10-03 15:15:00 [facility] INFERIOR TURBINATE/PARTIAL OR COMPLETE 70741 (Bilateral)<sup>2</sup> XR CHEST 1 VW COVID 2019-05-17 21:50:39 [facility] POCT TEST 2019-05-17 20:49:00 [facility] COMP. METABOLIC PANEL 2019-05-17 20:48:00 [facility] ([id number]) [facility] CBC WITH DIFFERENTIAL 2019-05-17 20:48:00 [facility] URINALYSIS 2019-05-17 20:48:00 [facility] ADC,CLC OR [facility] ONLY - 2019-05-17 20:48:00 [facility] INFLUENZA A & B DIRECT Medical B [place] ANTIGEN LACTIC ACID WHOLE BLOOD 2019-05-17 20:46:00 [facility] EKG-12 LEAD 2019-05-17 20:43:21 [facility] Arthroscopy of shoulder 2019-01-16 00:00:00 Marcus Messer Plan of Care Planned Activity Planned Date Details Comments Source Future Scheduled 2022-05-21 [facility] 20:16:00 (#1) [code = COVID-19 VACCINE (#1)] Future Scheduled 2022-05-21 [facility] 20:16:00 screening (procedure) [code = 664847387] Future Scheduled 2022-05-21 Screening for [facility] Test 20:16:00 malignant neoplasm of cervix (procedure) [code = 073264818] Future Scheduled 2022-05-21 [facility]ZA [facility]ACCINE [facility] 20:16:00 [code = INFLUENZA VACCINE] Encounters Start End Encounter Admission Attending Care Care Encounter Source Date/Time Date/Time Type Type Clinicians Facility Department ID 2020-02-03 Inpatient HCAPM LAZARO [id number] [facility] 17:31:[address] [facility] 2020-02-01 Inpatient [facility]CAP[facility] [id number] [facility] 13:42:[address] [facility] 2020-01-30 Inpatient HCAPM LA[facility]ARO [id number] [facility] 15:32:[address] [facility] 2020-01-24 Inpatient HCAPM LAZARO [id number] [facility] 21:53:[address] [facility] 2020-10-07 2020-10-07 Telephone KATARZYNA Aly [id number] Univers 00:00:00 00:00:00 Swetha PARIKH [id number] it y of [facility] [id number] [place] as [phone] [address] 2020-10-06 2020-10-06 Outpatient R [facility] [id number] Univers 13:25:00 13:25:00 ATTENDING ity [facility] 2020-09-27 2020-09-27 Laboratory Lab, [facility] Po I [facility] [id number]. [id number] Univers 17:33:21 17:53:21 Only Chi Alex [facility] [id number] ity [facility] [id number] [place] as Professio [phone] [address] Office Building [address] 2020-09-27 2020-09-27 Outpatient R [facility] [id number] Univers 17:40:00 17:40:00 ALEX segal [facility] 2020-09-27 2020-09-27 Orders Doctor COLÓN [id number] Univers 00:00:00 00:00:00 Only Unassigned, JL [id number] ity of [place] [facility] [id number] [place] as [phone] [facility] 009 Branch 2020-09-24 2020-09-25 Outpatient MAGY, [facility] [id number] [place] 00:00:00 00:00:00 YAMUNA [address] 2020-09-04 2020-09-06 Outpatient MARION, [place] [address] [id number] [place] 00:00:00 00:00:00 ANNALISA [address] 2020-04-14 2020-04-14 Emergency RIVENES, [place] [address] [id number] [place] 00:00:00 00:00:00 GELACIO [address] 2020-03-29 2020-03-29 Emergency SOTO, [place] [address] [id number] [place] 00:00:00 00:00:00 ELI [address] 2020-03-20 2020-03-20 Emergency SOTO, [place] [address] [id number] [place] 00:00:00 00:00:00 ELI [address] 2019-11-11 2019-11-11 Outpatient MANDA, VARUN [facility] [id number] [place] 00:00:00 00:00:[address] 2019-11-10 2019-11-10 Outpatient DOMINY, [facility] [id number] [place] 00:00:00 00:00:00 CLAIRE [address] 2019-11-09 2019-11-09 Outpatient DOMINY, [facility] [id number] [place] 00:00:00 00:00:00 CLAIRE [address] 2019-11-04 2019-11-04 Outpatient DOMINY, [facility] [id number] [place] 00:00:00 00:00:00 CLAIRE [address] 2019-11-02 2019-11-02 Outpatient DOMINY, [facility] [id number] [place] 00:00:00 00:00:00 CLAIRE [address] 2019-10-27 2019-10-27 Outpatient DOMINY, [facility] [id number] [place] 00:00:00 00:00:00 CLAIRE [address] 2019-10-19 2019-10-19 Outpatient DOMINY, [facility] [id number] [place] 00:00:00 00:00:00 CLAIRE 042 Method i 2019-10-10 2019-10-10 Outpatient VARUN HOLMAN [facility] [id number] [place] 00:00:00 00:00:00 955 Method i 2019-10-10 2019-10-10 Outpatient DOMINY, [facility] [id number] [place] 00:00:00 00:00:00 CLAIRE 359 Method i 2019-10-03 2019-10-03 Outpatient nullFlavo [facility] [id number] Memoria 12:25:34 19:20:00 r [facility] [place] [facility] 2019-10-03 2019-10-03 Outpatient nullFlavo [facility] [id number] Memoria 12:25:34 19:20:00 [facility] 2019-10-03 2019-10-03 Outpatient [facility] [id number] Memoria 07:25:34 14:20:00 [facility] 2019-10-03 2019-10-03 Outpatient Mccarthy, [id number] 07:25:34 14:20:00 Cleliseth 8 2019-09-28 2019-09-28 Outpatient DOMINY, [facility] [id number] [place] 00:00:00 00:00:00 CLAIRE 640 Method i 2019-09-26 2019-09-26 Outpatient DOMINY, [facility] [id number] [place] 00:00:00 00:00:00 CLAIRE 639 Method i 2019-09-20 2019-09-20 Outpatient VARUN HOLMAN [facility] [id number] [place] 00:00:00 00:00:00 790 Method i 2019-09-20 2019-09-20 Outpatient VARUN HOLMAN [facility] [id number] [place] 00:00:00 00:00:00 964 Method i 2019-09-19 2019-09-19 Outpatient VARUN HOLMAN [facility] [id number] [place] 00:00:00 00:00:00 186 [facility] 2019-09-14 2019-09-15 Outpatient nullFlavo [facility] [id number] [place] 15:35:18 04:59:59 [facility] 2019-09-14 2019-09-15 Outpatient nullFlavo [facility] [id number] [place] 15:35:18 04:59:59 r [facility] 2019-09-14 2019-09-14 Outpatient nullFlavo [facility] [id number] [place] 10:35:18 23:59:59 r des[place] 2019-09-14 2019-09-14 Outpatient Mccarthy, [id number] 10:35:18 23:59:59 Clement 8 2019-09-14 2019-09-14 Outpatient DOMINY, [facility] [id number] [place] 00:00:00 00:00:00 CLAIRE 156 [facility] 2019-09-12 2019-09-13 Outpatient DOMINY, [facility] [id number] [place] 00:00:00 00:00:00 CLAIRE [address] 2019-09-12 2019-09-12 Outpatient VARUN HOLMAN [facility] [id number] [place] 00:00:00 00:00:[address] 2019-09-07 2019-09-07 Outpatient DOMINY, [facility] [id number] [place] 00:00:00 00:00:00 CLAIRE [address] 2019-09-05 2019-09-05 Outpatient DOMINY, [facility] [id number] [address] [place] 00:00:00 00:00:00 CLAIRE [address] 2019-09-02 2019-09-02 Outpatient DOMINY, [facility] [id number] [address] [place] 00:00:00 00:00:00 CLAIRE [address] 2019-08-29 2019-08-29 Outpatient VARUN HOLMAN [facility] [id number] [place] 00:00:00 00:00:[address] 2019-08-29 2019-08-29 Outpatient [facility] [id number] [address] [place] 00:00:00 00:00:[address] 2019-08-23 2019-08-23 Outpatient DOMINY, [facility] [id number] [place] 00:00:00 00:00:00 CLAIRE [address] 2019-07-20 2019-07-20 Outpatient DOMINY, [facility] [id number] [address] [place] 00:00:00 00:00:00 CLAIRE 529 Method i 2019-06-17 2019-06-17 Outpatient DOMINY, [facility] [id number] [place] 00:00:00 00:00:00 CLAIRE 396 Method i 2019-06-17 2019-06-17 Outpatient DOMINY, [facility] [id number] [place] 00:00:00 00:00:00 CLAIRE 561 Method i 2019-05-19 2019-05-19 Telephone Goss, [facility] [id number] 00:00:00 00:00:00 Fatoumata Geiger 350.1.13.10 [place] 4.2.7.2.686 [place] [id number] [facility] 2019-05-19 2019-05-19 Telephone Goss, [facility] [id number] [facility] 00:00:00 00:00:00 Fatoumata Geiger 350.1.13.10 i ty of [place] 4.2.7.2.686 [facility] [phone] [address] 2019-05-17 2019-05-17 Emergency Goss, [facility] [id number] 15:32:35 18:07:00 Fatoumata Geiger 350.1.13.10 [place] [address] [place] [address] [id number] [facility] 2019-05-17 2019-05-17 Emergency X GOSS, [facility] ERT [id number] [address] 15:32:35 18:07:00 FATOUMATA segal [facility] 2019-05-17 2019-05-17 Emergency Goss, [facility] [id number] [facility] 15:32:35 18:07:00 Fatoumata Geiger 350.1.13.10 i ty of [place] 4.[address].7.[address] [place] [id number] 2019-04-19 2019-04-19 Outpatient DOMDHIRAJY, [facility] [id number] [place] 00:00:00 00:00:00 CLAIRE 795 Method i 2019-02-07 2019-02-07 Outpatient DOMDHIRAJY, [place] [id number] [place] 00:00:00 00:00:00 CLAIRE 831 Method i 2019-01-20 2019-01-20 Outpatient SMITHA [facility] [id number] [place] 00:00:00 00:00:00 CLAIRE [address] 2018-11-25 2018-11-25 Emergency E [place] [address] [facility] 09:48:00 09:48:00 Results Test Description Test Time Test Comments Results Result Comments Source SARS-CoV-2 (COVID-19) RNA [Presence] in Respiratory sp ecimen by 2020-09-25 03:26:19 LUIS with probe detection Test Item Value Reference Range Interpretation Comme nts SARS-CoV-2 (COVID-19) RNA [Presence] in Respiratory Not detected No t-Detected specimen by LUIS with probe detection (test code = 08007-2) Whether patient is employed in a healthcare setting (test code = 11008-1) Whether the patient has symptoms related to condition of interest (test code = 76838-3) Patient was hospitalized because of this condition (test code = 50605-6) Whether the patient was admitted to intensive care unit (ICU) for condition of interest (test code = 78093-4) Whether patient resides in a congregate care setting (test code = 89930-6) [facility] RNA [Presence] in Respiratory specimen by LUIS with probe [id number] 21:54:12 Test Item Value Reference Range Interpretation Comments SARS-CoV-2 (COVID-19) RNA Not detected Not-Detected [Presence] in Respiratory specimen by LUIS with probe detection (test code = 78095-7) Whether patient is employed in a healthcare setting (test code = 10770-8) Whether the patient has symptoms related to condition of interest (test code = 70324-8) Patient was hospitalized because of this condition (test code = 35363-2) Whether the patient was admitted to intensive care unit (ICU) for condition of interest (test code = 46051-2) Whether patient resides in a congregate care setting (test code = 84706-9) [facility]- CT ABD PELVIS W/O [id number] 22:50:00 [facility] 1980 Sex: F Name: MARC CARDENAS [facility] : 1980 Age/S: 39 / F [address] [address] Unit #: [id number] Loc: [place] [address] Phys: Chidi Eugene DO Acct: [id number] Dis Date: Status: REG ERPHONE #: [phone] Exam Date: 01/24/20202230 FAX #: Reason: constipation EXAMS: CPT: [id number] CT ABD PELVIS W/O CONT 30871 EXAM: - CT ABD PELVIS W/O CONT HISTORY: Constipation. TECHNIQUE: Axial eleazar ograms through the abdomen and pelvis were obtained without intravenous or enteric contrast. Coronaland sagittal reformatted images are provided. This exam was performed according to our departmental dose-optimization program, which includes automated exposure control, adjustment of the mA and/or kV according to patient size and/or use of iterative reconstruction technique. COMPARISON: None available time of interpretation. FINDINGS: The visualized lung bases are clear. No renal or ureteral calculiare demonstrated. There is no obstructive change. The unenhanced visualized liver, spleen, pancreas,and bilateral adrenals demonstrate no significant abnormalities. The gallbladder is surgically absen t. There is no fluid collection or pelvic adenopathy. There is tmycd-hd-ybeukcpf amounts of retainedfecal matter throughout the colon. The appendix appears normal. IMPRESSION: No acute abnormality with other findings as above. at 2250 Reported and signed by: Dennis Dennis M.D. CC: Chidi Christine MD Technologist:Isela Leon, RT(R)(CT) CTDI: DLP: Trnscb Date/Time: 01/24/2020 (2249) BernardoMKM4 Orig Print D/T: S: 01/24/2020 (1700) PAGE 1 Signed ReportUR HCG [id number] 22:21:00 Test Item Value Reference Range Interpretation Comments UR HCG QUAL (test code = HCGQLU) NEGATIVE NEGATIVE [id number] 12:51:00 Test Item Value Reference Range Interpretation Comments urine beta hcg (test Negative, Control code = urine beta hcg) Present (10/03/19 7:51 AM) [facility] RyjvwzhIFXQTBAQZN8589-97-10 12:51:00Negative, Control Present (10/03/19 7:51 AM)[facility]vbmpneULACENTGOS4172-11-94 12:51:00Negative, Control Present (10/03/19 7:51 AM)[facility] LpfuamuFISHMHSOZY4614-05-32 12:51:00Negative, Control Present (10/03/19 7:51 AM)[facility] VW [id number] 21:53:04 HISTORY: SOB. TECHNIQUE: Portable AP erect view of the chest is obtained. No prior cheststudy available for comparison. FINDINGS: No acute pneumonia. No pneumothorax or pleural effusion orpulmonary congestion detected. Cardiac size is within normal limits. Smallcalcified granuloma in the right midlungzone, resection of lateral end ofright clavicle and lower cervical spine surgical changes partiallyvisualized. CONCLUSIONS: No signs of acute cardiopulmonary disease.[facility], Radiant Results Inft User - 05/17/2019 4:54 PM CDTHISTORY: SOB.TECHNIQUE: Portable AP erect view of the chest is obtained. No prior cheststudy available for comparison.FINDINGS: No acute pneumonia. No pneumothorax or pleural effusion orpulmonary congestion detected. Cardiac size is within normal limits. Smallcalcified granuloma inthe right midlung zone, resection of lateral end ofright clavicle and lower cervical spine surgical c hanges partiallyvisualized.CONCLUSIONS: No signs of acute cardiopulmonary disease.[facility]. Metabolic Panel (21578) 2019-05-17 21:31:00 Test Item Value Reference Range Interpretation Comments NA (test code = 137 mmol/L 135-145 3736735271) K (test code = 3.9 mmol/L 3.5-5 1642510827) CL (test code = 105 mmol/L 98-108 7340940583) CO2 TOTAL (test code = 21 mmol/L 23-31 L 6567202573) AGAP (test code = 2-16 2388287020) BUN (test code = 12 mg/dL 7-23 0584140085) GLUCOSE (test code = 113 mg/dL 70-110 H 8788371083) CREATININE (test code = 0.53 mg/dL 0.5-1.04 9318589584) TOTAL BILI (test code = 0.1 mg/dL 0.1-1.9 8265944917) CALCIUM (test code = 9.2 mg/dL 8.6-10.6 9750094998) T PROTEIN (test code = 7.5 g/dL 6.3-8.2 4861696185) ALBUMIN (test code = 4.6 g/dL 3.5-5 0495213874) ALK PHOS (test code = 40 U/L 34-122 5062672733) ALTv (test code = 11 U/L 5-35 1742-6) AST(SGOT) (test code = 19 U/L 13-40 2879558786) eGFR Calculation mL/min/1.73m2 (Non-) (test code = 1326988504) eGFR Calculation mL/min/1.73m2 () (test code = 5129717909) CAYLA (test code = CAYLA) Association of Glomerular Filtration Rate (GFR) and Staging of Kidney Disease* + --+ --+ ------+| GFR (mL/min/1.73 m2) ?| With Kidney Damage ?| ?Without Kidney Damage+ --------+ --------+ +| ?>90 ?| ?Stage one ?| ? Normal ?+ ---+ ---+ -------+| ?60-89 ?| ?Stage two ?| ? Decreased GFR ? + --+ --+ ------+| ?30-59 ?| ?Stage three ?| ? Stage three ? + --+ --+ ------+| ?15-29 ?| ?Stage four ? | ? Stage four ?+ ---+ ---+ -------+| ?<15 (or dialysis) ? ?| ?Stage five ? | ? Stage five ?+ ---+ ---+ -------+ *Each stage assumes the associated GFR level has been in effect for at least three months. ?Stages 1 to 5, with or without kidney disease, indicate chronic kidney disease. Notes: Determination of stages one and two (with eGFR >59mL/min/1.73 m2) requires estimation of kidney damage for at least three months as defined by structural or functional abnormalities of the kidney, manifested by either:Pathological abnormalities or Markers of kidney damage (including abnormalities in the composition of the blood or urine or abnormalities in imaging tests). Lab Interpretation Abnormal (test code = 18361-6) [facility] Test Item Value Reference Range Interpretation Comments APPEARANCE (test code = Hazy Clear A 8389982943) COLOR (test code = Yellow Yellow 9743062044) PH (test code = 4.8-8.0 9625520466) SP GRAVITY (test code = 1.003-1.030 7539248393) GLU U QUAL (test code = Normal Normal 7438325457) BLOOD (test code = 1+ Negative A 7447863150) KETONES (test code = Negative Negative 7796032241) PROTEIN (test code = Negative Negative 2887-8) UROBILIN (test code = Normal Normal 6908342064) BILIRUBIN (test code = Negative Negative 7073370935) NITRITE (test code = Negative Negative 5832015925) LEUK GALO (test code = 250/uL Negative A 8582033326) RBC/HPF (test code = See_Comment H [Autom ated message] 4485377313) The system [employer] generated this result transmitted ref erence range: 0 - 3 HP F. The reference range was not used to int erpret this result as normal/abnormal . WBC/HPF (test code = See_Comment H [Autom ated message] 0362691608) The system [employer] generated this result transmitted ref erence range: 0 - 5 HP F. The reference range was not used to int erpret this result as normal/abnormal . BACTERIA (test code = Few Negative A 5345238197) MUCOUS (test code = Slight Negative LPF A 5489832853) SQ EPITH (test code = HPF 5145957008) Lab Interpretation (test Abnormal code = 72210-1) [facility] - INFLUENZA A & B DIRECT [id number] 21:23:00 Test Item Value Reference Range Interpretation Comments Influenza A (test code = 42401-2) Negative Negative Influenza B (test code = 18936-7) Negative Negative Lab Interpretation (test code = Normal 96236-3) [facility] WITH [id number] 21:08:00 Test Item Value Reference Range Interpretation Comments WBC (test code = See_Comment H [Automated 5490-2) message] The system which generated this result transmit tyron reference range : 4.30 - 11.10 10*3/?L. The reference range was not used to interpret this result as normal/abnormal . RBC (test code = See_Comment [Automated 779-8) message] The system which generated this result transmit tyron reference range : 3.93 - 5.25 10*6/?L. The reference range was not used to interpret this result as normal/abnormal . HGB (test code = 12.9 g/dL 11.6-15 718-7) HCT (test code = 39.5 % 35.7-45.2 4544-3) MCV (test code = 96.8 fL 80.6-95.5 H 787-2) MCH (test code = 31.6 pg 25.9-32.8 785-6) MCHC (test code = 32.7 g/dL 31.6-35.1 786-4) RDW-SD (test code = 45.8 fL 39-49.9 66859-2) RDW-CV (test code = 12.9 % 12-15.5 788-0) PLT (test code = See_Comment H [Automated 777-3) message] The system which generated this result transmit tyron reference range : 166 - 358 10*3/ ?L. The reference range was not u sed to interpret th is result as normal/abnormal . MPV (test code = 9.6 fL 9.5-12.9 50271-0) NRBC/100 WBC (test See_Comment [Automat ed code = 0789290636) message] The system which generated this result transmit tyron reference range : 0.0 - 10.0 /100 WBCs. The reference range was not used to interpret this result as normal/abnormal . NRBC x10^3 (test code <0.01 See_Comment [Auto mated = 7482964333) message] The system which generated this result transmit tyron reference range : 10*3/?L. The reference range was not used to interpret this result as normal/abnormal . GRAN MAT (NEUT) % 83.5 % (test code = 770-8) IMM GRAN % (test code 0.50 % = 1596545624) LYMPH % (test code = 9.6 % 736-9) MONO % (test code = 6.2 % 5905-5) EOS % (test code = 0.0 % 713-8) BASO % (test code = 0.2 % 706-2) GRAN MAT x10^3(ANC) 10.30 10*3/uL 1.88-7.09 H (test code = 3008346064) IMM GRAN x10^3 (test 0.06 10*3/uL 0-0.06 code = 8864416698) LYMPH x10^3 (test code 1.18 10*3/uL 1.32-3.29 L = 731-0) MONO x10^3 (test code 0.76 10*3/uL 0.33-0.92 = 742-7) EOS x10^3 (test code = <0.03 0.03-0.39 L 711-2) BASO x10^3 (test code <0.03 0.01-0.07 = 704-7) Lab Interpretation Abnormal (test code = 97394-5) [facility] Whole [id number] 21:02:00 Test Item Value Reference Range Interpretation Comments LACTIC ACID (test code = 1.66 mmol/L 0.5-2.2 8699556940) Lab Interpretation (test code = Normal 05060-3) [facility] [id number] 20:49:00 Test Item Value Reference Range Interpretation Comments POCT PREG (test code = 1605) neg On board controls acceptable with pos C Line (test code = 3574) POCT PREG LOT # (test code = 3575) [id number] POCT PREG TEST DATE (test 10/16/2020 code = 3576) Lab Interpretation (test code = Normal 74190-7) [facility]- XR CHEST 2 [id number] 17:53:00 Patient Name: MARC CARDENAS Unit No: [id number] EXAMS: CPT CODE: [id number] XR CHEST 2 V 04792 PA AND LATERAL VIEWS OF THE CHEST LOCATION: R16 CLINICAL HISTORY: Cough. COMPARISON: No previousexam available. FINDINGS: The cardiomediastinal shadow is within normal limits. The lungs are clear.No pleural fluids. No acute bony abnormality is found. Orthopedic hardware is noted in the lower cervical IMPRESSION: Unremarkable radiographic study of the chest. at 1753 Reported and signed by: Disha Plaza MD CC: Sherrell Christine Technologist: Feliberto Obrien, RT(R),RDMS(AB) Transcrpt Date/Tm/Trnsp: 10/11/2018 (175) t.[email or web address].JSL Orig Print D/T: S: 10/11/2018 (214) [facility] NAME: MARC CARDENAS [address] [facility] [address] PHYS: [place] [address] : 1980 AGE: 37 SEX: F LOC: Lisa.ZRAD PHONE #: [phone] EXAM DATE: 10/11/2018 STATUS: REG CLI FAX #: [phone] RADIOLOGY NO: PAGE 1 Signed ReportMRI CERVICAL WOCLINICAL INDICATION: S09.90XA Unspecified injury of head, initial encounter MODALITY: Siemens Skyra 3.0 Angelica MRITECHNIQUE: Multiplanar SE and FSE evaluation of the cervical region was performed without contrast enhancement.IMPRESSION:1. Straightened cervical lordosis. This can reflect muscle spasm.2.No fractures or destructive osseous lesions.3. No soft tissue edema is seen in the cervical region.4. Normal cervical spinal cord.5. At C5-6, there is 2 mm central and left lateralizing broad-based disc herniation extending into the left neural foramen with moderate narrowing of left foramen and probable impingement of left C6 exiting nerve root.FINDINGS:COMPARISON: noneThere is straightened cervicallordosis. This can reflect muscle spasm. The prevertebral soft tissues are normal.There are no visible fractures, dislocations or destructive osseous lesions in the cervical spine. Visualized osseous structures of the skull base and cervical spine are intact without pathologic bone marrow edema.There is mild degeneration of the C5-6 disc.The craniocervical junction and cervical spinal cord are normal. FINDINGS AT SPECIFIC LEVELS:C2-C3: No abnormalities.C3-C4: No abnormalities.C4- C5: No abnormalities.C5-C6: Disc is mildly reduced in height. There is a 2 mm mildly lobulated central and left lateralizing disc herniation which extends into the left neural foramen. There is minimal effacement left ventral cord without pathologic signal intensity in the cord. Central canal and right foramen are patent. There is moderately severe left foraminal stenosis with probable impingement of exiting left C6 nerveroot.C6-C7: No abnormalities.C7-T1: No abnormalities."
--- NOTE | 2022-06-11 19:04 | RAD REPORT ---
[facility] DES[facility]2022 6:33 pm CLINICAL HISTORY: CHEST PAIN COMPARISON: Chest Single View dated 06/13/2019; Chest Single View dated 06/12/2019; CHEST SINGLE VIEW dated 07/04/2008; CHEST PA AND LAT 2 VIEW dated 11/20/2007CHEST PA AND LAT 2 VIEW dated 12/21/2008 TECHNIQUE: Portable AP view of the chest. FINDINGS: The lungs are clear. No pneumothorax or effusion. The cardiomediastinal contours are unrem arkable. IMPRESSION: No acute cardiopulmonary process.
[2022-06-11 19:19] LABS: Absolute Lymphocytes (CBC) 2.2 K/uL (0.7-4.9); Lymphocytes % 18.7 % (15.3-44.8); MCV 95.9 fL (80-100); MPV 7.7 fL (7.6-11.3); RBC Red Blood Cell Count 4.38 M/uL (3.86-4.86)
[2022-06-11 19:42] LABS: Bilirubin Direct 0.1 mg/dL (0-0.2); Bilirubin Total 0.3 mg/dL (0.2-1.0); Magnesium 2.2 mg/dL (1.6-2.4); Potassium 3.6 mEq/L (3.5-5.1); Protein, Total 7.7 g/dL (6.4-8.2); Troponin High Sensitivity 3.5 pg/mL (<58.9)
[2022-06-11] MEDS ORDERED: KETOROLAC 30 MG/ML INJ ONE (20:05)
[2022-06-11] MEDS ORDERED: DIPHENHYDRAMINE 50 MG/ML VIAL ONE (20:05)
[2022-06-11] MEDS ORDERED: METOCLOPRAMIDE 10 MG/2mL INJ ONE (20:05)
[2022-06-11] MEDS ORDERED: NA CHLORIDE 0.9% 1,000 ML ONE (20:06)
--- NOTE | 2022-06-11 20:47 | RAD REPORT ---
EXAM DESCRIPTION: CT - Head Brain Wo Cont - 06/11/2022 8:20 pm CLINICAL HISTORY: HEADACHE COMPARISON: No comparisons TECHNIQUE: Noncontrast head CT images ad were obtained without IV contrast. Multiplanar reformats we re generated and reviewed. All CT scans are performed using dose optimization technique as appropriate and may include automated exposure control or mA/KV adjustment according to patient size. FINDINGS: No intracranial hemorrhage, mass, or edema. Midline structures are unremarkable. Normal ventricular caliber for age. Eason-white matter differentiation is preserved, without evidence of acute infarct. No abnormal extra- axial fluid collections. Mastoid air cells are well aerated. Scattered mild to moderate inflammatory paranasal sinus mucosal t hickening, with a mucous retention cyst in the left maxillary sinus. . No acute bony findings. IMPRESSION: No evidence of an acute intracranial process. Inflammatory paranasal sinus mucosal thickening as above.
--- NOTE | 2022-06-11 22:23 | EDPHYS ---
Physician Documentation [facility] Name: Juliet Cardenas Age: 41 yrs Sex: Female : 1980 Arrival Date: 06/11/2022 Time: 17:23 Bed 2 Private MD: ED Physician Yuan Eugene HPI: 06/11 19:25 This 41 yrs old Female presents to ER via Wheelchair with complaints of Chest Pain. kb 19:25 The patient or guardian reports chest pain that is located primarily in the substernal kb area. The pain does not radiate. Associated signs and symptoms: Pertinent positives: shortness of breath, Tingling down extremities, Pertinent negatives: abdominal pain, cough, lower extremity pain, lower extremity swelling. The chest pain is described as sharp. Duration: The patient or guardian reports a single episode, that is still ongoing. Modifying factors: The symptoms are alleviated by nothing. the symptoms are aggravated by nothing. Severity of pain: At its worst the pain was mild moderate in the emergency department the pain is unchanged. The patient has not experienced similar symptoms in the past. The patient has not recently seen a physician. Pt reports chest pain that started 2 and half hours prior to arrival. Reports shortness of breath and tingling down both upper extremities. Denies nausea or vomiting. Denies cough, congestion, fever. Reports pain is worse with inspiration. 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 - Social history:: Smoking status: Patient reports the use of cigarette tobacco products, smokes one-half pack cigarettes per day. ROS: 19:25 Constitutional: Negative for fever, chills, and weight loss. kb 19:25 Cardiovascular: Positive for chest pain. 19:25 Respiratory: Positive for shortness of breath. 19:25 Neuro: Positive for tingling, of the right arm and left arm. 19:25 All other systems are negative. Exam: 19:25 Head/Face: Normocephalic, atraumatic. ENT: Moist Mucous membranes Chest/axilla: kb Normal chest wall appearance and motion. Cardiovascular: Regular rate and rhythm with a normal S1 and S2. No gallops, murmurs, or rubs. No pulse deficits. Respiratory: Respirations even and unlabored. No increased work of breathing. Talking in full sentences Abdomen/GI: Soft, non-tender. No distention Skin: Warm, dry with normal turgor. Normal color. MS/ Extremity: Pulses equal, no cyanosis. Neurovascular intact. Full, normal range of motion. Neuro: Awake and alert, GCS 15, oriented to person, place, time, and situation. Moves all extremities. Normal gait. 19:25 Constitutional: The patient appears alert, awake, anxious. 19:51 ECG was reviewed by the Attending Physician. kb Vital Signs: 17:40 BP 140 / 91; Pulse 96; Resp 18; Temp 97.1; Pulse Ox 100% ; Weight 56.7 kg; Height 4 ft. ap3 11 in. ; Pain 9/10; 19:19 BP 151 / 83; Pulse 79; Resp 24; Pulse Ox 96% on R/A; lg3 20:29 BP 145 / 93; Pulse 82; Resp 21; Pulse Ox 98% on R/A; lg3 21:43 BP 123 / 81; Pulse 84; Resp 21; Pulse Ox 97% on R/A; lg3 23:11 BP 129 / 74; Pulse 85; Resp 24; Pulse Ox 99% on R/A; lg3 17:40 Body Mass Index 25.25 (56.70 kg, 149.86 cm) ap3 17:40 Pain Scale: Adult ap3 MDM: 17:27 Patient medically screened. kb 19:27 Differential diagnosis: abnormal EKG, acute myocardial infarction, anxiety, coronary kb artery disease pneumonia, pulmonary embolus. Data reviewed: vital signs, nurses notes. 19:58 Transition of care: After a detail discussion of the patient's case, care is kb transferred to Michael AMARO. 22:21 ED course: VSS. Pain markedly improved. Repeat troponin negative. Will discharge to home for continued monitoring. 06/11 17:33 Order name: Basic Metabolic Panel; Complete Time: 19:45 kb 06/11 17:33 Order name: CBC with Diff; Complete Time: 19:25 kb 06/11 17:33 Order name: D-Dimer; Complete Time: 19:25 kb 06/11 17:33 Order name: LFT's; Complete Time: 19:45 kb 06/11 17:33 Order name: Magnesium; Complete Time: 19:45 kb 06/11 17:33 Order name: NT PRO-BNP; Complete Time: 19:45 kb 06/11 17:33 Order name: Troponin HS; Complete Time: 19:45 kb 06/11 21:04 Order name: Troponin HS: repeat troponin; Complete Time: 22:20 cp 06/11 17:33 Order name: XRAY Chest (1 view); Complete Time: 19:08 kb 06/11 19:51 Order name: CT Head Brain wo Cont; Complete Time: 21:04 kb 06/11 21:04 Interpretation: Report reviewed. 06/11 17:33 Order name: EKG; Complete Time: 17:34 kb 06/11 17:33 Order name: Cardiac monitoring; Complete Time: 19:17 kb 06/11 17:33 Order name: EKG - Nurse/Tech; Complete Time: 19:17 kb 06/11 17:33 Order name: IV Saline Lock; Complete Time: 19:17 kb 06/11 17:33 Order name: Labs collected and sent; Complete Time: 19:17 kb 06/11 17:33 Order name: O2 Per Protocol; Complete Time: 19:17 kb 06/11 17:33 Order name: O2 Sat Monitoring; Complete Time: 19:17 kb EC:51 Rate is 77 beats/min. Rhythm is regular. QRS [place] is Normal. AL interval is normal at kb 138 msec. QRS interval is normal at 82 msec. QT interval is normal at 409 msec. Administered Medications: 20:29 Drug: NS 0.9% IV 1000 ml Route: IV; Rate: 1000 ml; Site: left antecubital; lg3 20:29 Drug: diphenhydrAMINE IVP 12.5 mg Route: IVP; Site: left antecubital; lg3 20:29 Drug: Ketorolac IVP 15 mg Route: IVP; Site: left antecubital; lg3 20:29 Drug: metoCLOPramide IVP 10 mg Route: IVP; Site: left antecubital; lg3 Disposition Summary: 06/11/22 22:22 Discharge Ordered Location: Home cp Problem: new cp Symptoms: have improved cp Condition: Stable cp Diagnosis - Chest pain, unspecified cp - Headache cp - Paresthesia of skin cp Followup: cp - With: Private Physician - When: 1 - 2 days - Reason: Recheck today's complaints Discharge Instructions: - Discharge Summary Sheet cp - Nonspecific Chest Pain, Adult cp - General Headache Without Cause cp - Paresthesia cp - Aspirin and Your Heart cp - and Returning to Work lg3 Forms: - Medication Reconciliation Form cp - Thank You Letter cp - Antibiotic Education cp - Prescription Opioid Use cp - Work release form lg3 Prescriptions: - albuterol sulfate 90 mcg/actuation Inhalation HFA Aerosol Inhaler - inhale 1 puff by INHALATION route every 4 to 6 hours as needed for shortness of cp breath or wheezing; do not exceed 16 puffs per 24 hrs; 1 unit; Refills: 0, Product Selection Permitted - Medrol (Bill) 4 mg Oral Tablets, Dose Pack - take 1 tablet by ORAL route as directed - follow package instructions; 1 cp packet; Refills: 0, Product Selection Permitted Addendum: 06/16/2022 07:00 Co-signature as Attending Physician, Yuan Eugene MD I reviewed the patient's care r n provided by the Advanced Practice Provider and agree with the diagnosis and treatment plan. Signatures: Dispatcher [employer] EDMS Pamella Farr, WAREHOUSE HANDLER-C WAREHOUSE HANDLER-Ckb Yuan Eugene MD MD rn Michael Hidalgo PA PA cp Allison Collins, RN RN ap3 Lesley Flores, AYESHA RN lg3 Corrections: (The following items were deleted from the chart) 06/11 17:43 17:42 PSHx: shou; ap3 ap3 19:27 19:25 Pt reports chest pain that started 2 and half hours prior to arrival. Reports kb shortness of breath and tingling down both upper extremities. Denies nausea or vomiting. Denies cough, congestion, fever.. kb
--- NOTE | 2022-06-11 22:23 | ER ---
Nurse's Notes [facility] Name: Juliet Cardenas Age: 41 yrs Sex: Female : 1980 Arrival Date: 06/11/2022 Time: 17:23 Bed 2 Private MD: Diagnosis: Chest pain, unspecified;Headache;Paresthesia of skin Presentation: 06/11 17:40 Chief complaint: Patient states: she has been having shortness of breath, chest pain, ap3 and tingling in both arm for approx 2.5 hours. Coronavirus screen: At this time, the client does not indicate any symptoms associated with coronavirus-19. Ebola Screen: No symptoms or risks identified at this time. Initial Sepsis Screen: Does the patient meet any 2 criteria? No. Patient's initial sepsis screen is negative. Does the patient have a suspected source of infection? No. Patient's initial sepsis screen is negative. Risk Assessment: Do you want to hurt yourself or someone else? Patient reports no desire to harm self or others. Onset of symptoms was June 11, 2022 at 15:00. 17:40 Method Of Arrival: Wheelchair ap3 17:40 Acuity: MAAN 3 ap3 Triage Assessment: 17:43 General: Appears in no apparent distress. Behavior is calm, cooperative. Pain: ap3 Complains of pain in chest Pain currently is 9 out of 10 on a pain scale. Also complains of shortness of breath, tingling of arms. Neuro: Level of Consciousness is awake, alert, obeys commands, Oriented to person, place, time, situation. Cardiovascular: Patient's skin is warm and dry. Respiratory: Airway is patent Respiratory effort is even, unlabored, Respiratory pattern is regular, symmetrical. SPECIAL PROCEDURE TECH: 17:44 LMP 05/20/2022 ap3 Historical: - Allergies: 17:42 Ancef; ap3 17:42 Versed; ap3 - PMHx: 17:42 Asthma; ap3 - PSHx: 17:42 Cholecystectomy; Tonsillectomy; shoulder sx; disk replacements; ap3 - Immunization history:: Client reports having NOT received the Covid vaccine. - Social history:: Smoking status: Patient reports the use of cigarette tobacco products, smokes one-half pack cigarettes per day. Screenin:44 Abuse screen: Denies threats or abuse. Nutritional screening: No deficits noted. ap3 Tuberculosis screening: No symptoms or risk factors identified. 19:19 [facility] ED Fall Risk Assessment (Adult) History of falling in the last 3 months, lg3 including since admission No falls in past 3 months (0 pts). Assessment: 19:19 General: Appears in no apparent distress. comfortable, Behavior is calm, cooperative. lg3 Pain: Complains of pain in chest Pain does not radiate. Pain began 3 hours ago. Neuro: No deficits noted. [place] Agitation-Sedation Scale (RASS): 0 - Alert and Calm Level of Consciousness is awake, alert, obeys commands, Oriented to person, place, time, situation. Neuro:. Cardiovascular: Reports chest pain, shortness of breath, Capillary refill < 3 seconds Clubbing of nail beds is absent JVD is absent Patient's skin is warm and dry. Chest pain is described as mild. Respiratory: No deficits noted. Airway is patent Respiratory effort is even, unlabored, Respiratory pattern is regular, symmetrical, Breath sounds are clear bilaterally. GI: No deficits noted. No signs and/or symptoms were reported involving the gastrointestinal system. Abdomen is flat, non-distended. : No deficits noted. No signs and/or symptoms were reported regarding the genitourinary system. EENT: No deficits noted. No signs and/or symptoms were reported regarding the EENT system. Derm: No deficits noted. No signs and/or symptoms reported regarding the dermatologic system. Skin is intact, is healthy with good turgor, Skin is dry, Skin is normal, Skin temperature is warm. Musculoskeletal: No deficits noted. Reports numbness in right arm and left arm. 20:29 Reassessment: Patient appears in no apparent distress at this time. No changes from lg3 previously documented assessment. Patient and/or family updated on plan of care and expected duration. Pain level reassessed. Patient is alert, oriented x 3, equal unlabored respirations, skin warm/dry/pink. 21:44 Reassessment: Patient appears in no apparent distress at this time. No changes from lg3 previously documented assessment. Patient and/or family updated on plan of care and expected duration. Pain level reassessed. Patient is alert, oriented x 3, equal unlabored respirations, skin warm/dry/pink. Patient states feeling better. 23:11 Reassessment: Patient appears in no apparent distress at this time. No changes from lg3 previously documented assessment. Patient and/or family updated on plan of care and expected duration. Pain level reassessed. Patient is alert, oriented x 3, equal unlabored respirations, skin warm/dry/pink. Patient denies pain at this time. Patient states feeling better. Patient states symptoms have improved. Vital Signs: 17:40 BP 140 / 91; Pulse 96; Resp 18; Temp 97.1; Pulse Ox 100% ; Weight 56.7 kg; Height 4 ft. ap3 11 in. ; Pain 9/10; 19:19 BP 151 / 83; Pulse 79; Resp 24; Pulse Ox 96% on R/A; lg3 20:29 BP 145 / 93; Pulse 82; Resp 21; Pulse Ox 98% on R/A; lg3 21:43 BP 123 / 81; Pulse 84; Resp 21; Pulse Ox 97% on R/A; lg3 23:11 BP 129 / 74; Pulse 85; Resp 24; Pulse Ox 99% on R/A; lg3 17:40 Body Mass Index 25.25 (56.70 kg, 149.86 cm) ap3 17:40 Pain Scale: Adult ap3 ED Course: 17:25 Patient arrived in ED. mr 17:27 Pamella Farr FNP-C is PHCP. kb 17:27 Yuan Eugene MD is Attending Physician. kb 17:42 Triage completed. ap3 17:44 Arm band placed on right wrist. ap3 17:44 Patient maintains SpO2 saturation greater than 95% on room air. ap3 18:35 XRAY Chest (1 view) In Process Unspecified. EDMS 19:17 Inserted saline lock: 20 gauge in left antecubital area, using aseptic technique. Blood lg3 collected. 19:19 Patient has correct armband on for positive identification. Placed in gown. Bed in low lg3 position. Call light in reach. Side rails up X 1. Client placed on continuous cardiac and pulse oximetry monitoring. NIBP monitoring applied. environmental monitoring specialist on. Door closed. Noise minimized. Warm blanket given. Family accompanied patient. 19:57 Lesley Flores, RN is Primary Nurse. lg3 19:57 PHCP role handed off by Pamella Farr FNP-C cp 19:57 Michael Hidalgo PA is PHCP. cp 20:22 CT Head Brain wo Cont In Process Unspecified. EDMS 21:24 Troponin HS: repeat troponin Sent. lg3 23:12 No provider procedures requiring assistance completed. IV discontinued, intact, lg3 bleeding controlled, No redness/swelling at site. Pressure dressing applied. Administered Medications: 20:29 Drug: NS 0.9% IV 1000 ml Route: IV; Rate: 1000 ml; Site: left antecubital; lg3 20:29 Drug: diphenhydrAMINE IVP 12.5 mg Route: IVP; Site: left antecubital; lg3 20:29 Drug: Ketorolac IVP 15 mg Route: IVP; Site: left antecubital; lg3 20:29 Drug: metoCLOPramide IVP 10 mg Route: IVP; Site: left antecubital; lg3 Medication: 23:12 VIS not applicable for this client. lg3 Outcome: 22:22 Discharge ordered by MD. cp 23:12 Discharged to home ambulatory, with family. lg3 23:12 Condition: stable 23:12 Discharge instructions given to patient, Instructed on discharge instructions, follow up and referral plans. medication usage, Demonstrated understanding of instructions, follow-up care, medications, Prescriptions given X 2. 23:12 Patient left the ED. lg3 Signatures: Dispatcher [employer] EDMS Pamella Farr, SOLUTIONS ARCHITECT-C SOLUTIONS ARCHITECT-Rebeca Lindsey Mixon mr Michael Hidalgo, PA PA Allison Robledo, RN RN ap3 Lesley Flores, AYESHA RN lg3 Corrections: (The following items were deleted from the chart) 17:43 17:42 PSHx: deweyu; ap3 ap3
[2022-06-11 23:28] VITALS: TEMP 97.1
[2022-06-11 23:47] VITALS: BP 129/74; O2SAT 99
--- NOTE | 2022-06-13 07:04 | EKG ---
Test Date: 2022-06-11 Test Time: 19:12:05 Signal Tower Operator: FERNANDO MEASUREMENT RESULTS: Intervals: Rate: 77 AR: 138 QRSD: 82 QT: 362 QTc: 409 Roberts: P: 65 AR: 138 QRS: 79 T: 73 INTERPRETIVE STATEMENTS: Normal sinus rhythm Normal ECG No previous ECG available for comparison Electronically Signed On 06-13-22 07:00:21 CDT by Blake Ott
== END 2022-06-11 23:12 | disposition home or self-care (01) ==
LOC: ER 17:23
DX: R07.9 Chest pain, unspecified (principal); R51.9 Headache, unspecified; R20.2 Paresthesia of skin; F17.210 Nicotine dependence, cigarettes, uncomplicated; Z88.8 Allergy status to other drugs, medicaments and biological substances
CPT/HCPCS: 85025; 80048; 36415; 83735; 85379; 80076; 84484 ×2; 83880; 70450; 71045; J2765; J1200; J7030; 93005; 96374; 96375; 99285